=== PATIENT | male | born 1975 | race Hispanic/Latino ===

== ENCOUNTER → 2021-12-01 | Outpatient (CLI) | payer OTHER | END | disposition home or self-care (01) | LOC: RAH 10:37 | PROVIDERS: ATTEND Orthopaedic Surgery | DX: M75.112 Incomplete rotator cuff tear or rupture of left shoulder, not specified as traumatic (principal); Z98.890 Other specified postprocedural states; Z96.612 Presence of left artificial shoulder joint | CPT/HCPCS: 73221 ==